=== PATIENT | female | born 1965 | race African-American/Black ===

== ENCOUNTER 2021-11-12 11:39 | Emergency (ER) | payer OTHER ==
[~2021-11-12] VITALS: Ht 162.6 cm; Wt 98.4 kg
--- NOTE | 2021-11-12 11:50 | NUR ---
BIBS W/ C/O LEFT ARM/LEFT SHOULDER AND NECK PAIN, RATED 8/10 IN PS. PT A/O X4, AMBULATORY. TO ER BED 1.
--- NOTE | 2021-11-12 11:51 | NUR ---
DR PRO AT BEDSIDE FOR EVAL
--- NOTE | 2021-11-12 12:13 | NUR ---
PT TAKEN TO RADIOLOGY FOR CT SCAN.
--- NOTE | 2021-11-12 12:26 | NUR ---
PT RETURNED FROM RADIOLOGY
--- NOTE | 2021-11-12 12:48 | NUR ---
Patient discharged to home in stable condition. Written and verbal after care instructions given. Patient verbalizes understanding of instruction.
[2021-11-12 12:52] VITALS: BP 134/97
== END 2021-11-12 12:53 | disposition home or self-care (01) ==
LOC: ER 11:58
DX: S09.90XA Unspecified injury of head, initial encounter (principal); I10 Essential (primary) hypertension; W03.XXXA Other fall on same level due to collision with another person, initial encounter; Y93.89 Activity, other specified; Y92.89 Other specified places as the place of occurrence of the external cause; Y99.8 Other external cause status
CPT/HCPCS: 70450-TC; 72125-TC